=== PATIENT | male | born 1960 | race Caucasian/White ===

== ENCOUNTER 2019-12-24 08:13 | Day surgery (SDC) | payer BC ==
[2019-12-23 09:04] VITALS: BMI 22.9
[~2019-12-24 08:13] MED LIST: LACTATED RINGERS 1,000 ML IV SCH
[2019-12-24 08:40] VITALS: RESP 17; TEMP 98.1
[2019-12-24] MEDS ORDERED: PROPOFOL 10 MG/ML 20 ML VIAL IV ONE (09:17)
--- NOTE | 2019-12-24 09:21 | P.GSHP ---
History of Present Illness H&P Date: 12/24/19 Chief Complaint: Screening colonoscopy This a 59-year-old male who presents today for screening colonoscopy. Patient denies a significant GI complains. Past Medical History Past Medical History: COPD History of Any Multi-Drug Resistant Organisms: None Reported Past Surgical History: Hernia Repair Additional Past Surgical History / Comment(s): SX FOR COLLAPSED LUNG Past Anesthesia/Blood Transfusion Reactions: No Reported Reaction Smoking Status: Current every day smoker - Past Family History Father Family Medical History: Cancer Medications and Allergies Home Medications Medication Instructions Recorded Confirmed Type Fluticasone Nasal [place] [Flonase 1 spray EA NOSTRIL DAILY 12/23/19 12/24/19 History Nasal [place]] Fluticasone/Umeclidin/Vilanter 1 inhalation INHALATION DAILY 12/23/19 12/23/19 History [Moiz Ellipta 100-62.5-25] Loratadine [Claritin] 10 mg PO DAILY 12/23/19 12/24/19 History Montelukast [Singulair] 10 mg PO DAILY 12/23/19 12/23/19 History buPROPion HCL [buPROPion HCL SR] 150 mg PO DAILY 12/23/19 12/24/19 History Allergies Allergy/AdvReac Type Severity Reaction Status Date / Time No Known Allergies Allergy Verified 12/24/19 08:29 Surgical - Exam Vital Signs Temp Pulse Resp BP Pulse Ox 98.1 F 77 17 149/87 97 12/24/19 08:37 12/24/19 08:37 12/24/19 08:37 12/24/19 08:37 12/24/19 08:37 - General well developed, well nourished, no distress - Eyes PERRL - ENT normal pinna - Neck no masses - Respiratory normal expansion - Cardiovascular Rhythm: regular - Abdomen Abdomen: soft, non tender Assessment and Plan Assessment: Perform screening colonoscopy.
--- NOTE | 2019-12-24 09:31 | P.OP ---
Date of Procedure: 12/24/19 Preoperative Diagnosis: Screening colonoscopy Postoperative Diagnosis: Normal colonoscopy Procedure(s) Performed: Colonoscopy Anesthesia: MAC Surgeon: Yeison Miranda Pathology: none sent Condition: stable Disposition: PACU Description of Procedure: PROCEDURE: The patient was placed on the endoscopy table in the lateral position. Digital rectal examination was performed which revealed no abnormalities. The prostate was symmetrical without nodules. Flexible colonoscope was then placed in the patient's anus and passed throughout the entire colon. The ileocecal valve was visualized. The cecum, ascending, transverse, descending and sigmoid colon were normal. The rectum was normal as well. There were no masses, polyps or diverticula noted in the entire colon. SUMMARY OF FINDINGS: Normal colonoscopy.
[2019-12-24 09:44] VITALS: BP 115/88; PULSE 88
== END 2019-12-24 10:01 | disposition home or self-care (01) ==
LOC: ORWHC2ENDO 08:13
PROVIDERS: ATTEND Surgery
DX: Z12.11 Encounter for screening for malignant neoplasm of colon (principal); J44.9 Chronic obstructive pulmonary disease, unspecified; F17.200 Nicotine dependence, unspecified, uncomplicated; Z79.51 Long term (current) use of inhaled steroids; Z79.899 Other long term (current) drug therapy; Z98.890 Other specified postprocedural states; Z80.9 Family history of malignant neoplasm, unspecified
CPT/HCPCS: J2704; G0121

== ENCOUNTER → 2020-03-24 | Outpatient (CLI) | payer BC ==
--- NOTE | 2020-03-24 16:05 | CONS ---
CONSULTATION DATE OF SERVICE: 03/24/2020 This patient is a 60-year-old gentleman who has been evaluated in Sleep Center for possible obstructive sleep apnea-hypopnea syndrome. HISTORY OF PRESENT ILLNESS/SLEEP-WAKE EVALUATION: Patient's usual sleep schedule on working days is from 8 p.m. to 3 a.m., on weekends from 10 p.m. to 5 a.m. Usually no problems with falling asleep. No TV in bedroom. He prefers to sleep on the stomach position. According to his , he has loud snoring and witnessed episodes of stopped breathing during sleep. He wakes up from sleep about 3 times with one episode of nocturia. Positive history of restless legs and twitching legs during sleep. Positive history of sleeptalking. The patient feels sleepiness during the day, has problems with memory, irritability. [place] Sleepiness Scale is significantly increased at 15. PAST MEDICAL HISTORY: Positive for bronchitis, emphysema, asthma, acid reflux, pneumothorax. PAST SURGICAL HISTORY: Laminectomy, hernia repair. MEDICATIONS: Trelegy, montelukast, bupropion. SOCIAL HISTORY: Positive for smoking for about 30 years, up to 2 packs a day. Alcohol consumption occasional. FAMILY HISTORY: Stoke, asthma. PHYSICAL EXAMINATION: GENERAL: A pleasant patient in no distress. VITAL SIGNS: BP 137/83, HR 89, RR 15, height 5 feet 7 inches, weight 172.8, temperature 97.8. Oxygen saturation at room air 95%. HEENT: PERRLA, EOMI. Evaluation of oropharynx showed tongue protrudes midline. Low position of soft palate. Mallampati III to IV. NECK: Supple. No JVD. Thyroid is not palpable. Neck measures 15-1/2 inches in circumference. LUNGS: A few wheezes. HEART: S1, S2 regular. No murmurs, gallops or rubs. ABDOMEN: Soft and nontender. Bowel sounds are present. No organomegaly appreciated. EXTREMITIES: No clubbing or cyanosis. PLANT ATTENDANT: Awake, alert, and oriented X3. Cranial nerves 2 to 7 intact. There is no fasciculation or atrophy. noted. No focal deficits observed. IMPRESSION: 1. Loud snoring, witnessed episodes of stopped breathing during sleep, low position of soft palate, awakenings from sleep, sleepiness; obstructive sleep apnea-hypopnea syndrome. 2. History of restless legs. 3. Twitching of the legs during the night; possibly periodic limb movements. 4. Chronic obstructive pulmonary disease; history of smoking for about 60 pack/years. 5. History of pneumothorax. 6. Status post laminectomy. 7. Status post hernia repair. 8. History of anxiety. PLAN: 1. Polysomnography for evaluation of patient's breathing during sleep. 2. CPAP/BiPAP titration if sleep study confirms obstructive sleep apnea-hypopnea syndrome. 3. Preferable position during sleep on the side. 4. No driving if patient feels any sleepiness. 5. I will see patient for follow up visit to explain results of testing and following plan. Thank you very much for referring this patient for consultation. Sincerely, Leander Roth MD, PhD, FAASM Diplomat of [employer] [facility] [facility] [place] [facility] / SORENN: [id number] /
== END | disposition home or self-care (01) ==
LOC: SLEEP 13:14
PROVIDERS: ATTEND Internal Medicine
DX: G47.33 Obstructive sleep apnea (adult) (pediatric) (principal); J44.9 Chronic obstructive pulmonary disease, unspecified; G25.89 Other specified extrapyramidal and movement disorders; G47.69 Other sleep related movement disorders; Z87.891 Personal history of nicotine dependence; Z87.09 Personal history of other diseases of the respiratory system; Z98.890 Other specified postprocedural states
CPT/HCPCS: 99211

== ENCOUNTER → 2020-08-11 | Outpatient (CLI) | payer BC ==
--- NOTE | 2020-08-11 17:43 | SFUN ---
SLEEP CENTER FOLLOW UP NOTE DATE OF SERVICE: 08/11/2020 This 60-year-old gentleman has been followed in the sleep center for treatment of obstructive sleep apnea-hypopnea syndrome. Recently the patient had a polysomnogram which showed that the patient has obstructive sleep apnea, in mild range. Then he had a CPAP titration and subsequently was started on treatment with CPAP. The patient is able to use his CPAP equipment but sometimes feels discomfort during the night. He feels that there is not enough air. He also has problems with dryness. He does not know how to adjust humidity in the machine. I checked his CPAP unit. For the last month the patient used it 29/30 nights and 1630 nights for more than 4 hours with average usage 4.2 hours per night. Range of the pressure is 5 to 8. Leak is 7 L/minute. Apnea-hypopnea index 5.3. The patient is using a full-face mask. MEDICATIONS: Trelegy, montelukast, bupropion. PHYSICAL EXAMINATION: GENERAL: A pleasant patient in no distress. VITAL SIGNS: BP 155/66, HR 74, RR 12, oxygen saturation at room air 94%. Weight 181 pounds, temperature 98.2. [place] Sleepiness Scale is 13. HEENT: PERRLA, EOMI. Evaluation of oropharynx showed tongue protrudes midline. Low position of soft palate. Mallampati III to IV. NECK: Supple. No JVD. Thyroid is not palpable. LUNGS: Clear to percussion and to auscultation. Good air exchange. No wheezing or rhonchi. HEART: S1, S2 regular. No murmurs, gallops or rubs. ABDOMEN: Soft and nontender. Bowel sounds are present. No organomegaly appreciated. EXTREMITIES: No clubbing or cyanosis. HAIR SPRING WINDER: Awake, alert, and oriented X3. Cranial nerves 2 to 7 intact. There is no fasciculation or atrophy. noted. No focal deficits observed. IMPRESSION: 1. Obstructive sleep apnea-hypopnea syndrome. The patient demonstrated borderline compliance with treatment, benefitting from treatment. He feels more refreshed when he is using CPAP equipment. 2. History of restless legs. 3. Periodic limb movements were documented during the sleep study. 4. Chronic obstructive pulmonary disease; history of smoking for about 60 pack/years. 5. History of pneumothorax. 6. Status post laminectomy. 7. Status post hernia repair. 8. History of anxiety. PLAN: 1. Position of the machine should be 1 to 2 feet lower than the head. 2. Distilled water for the humidifier. 3. To dry chamber of humidifier and the tube in the morning. 4. To increase sleep time with the machine every night for the whole night. 5. I changed the maximal pressure in the machine to 10, so now the range of pressure is 5 to 10. 6. I taught the patient how to use heated humidifier, how to adjust the temperature. 7. Watching weight. 8. No driving if feeling any sleepiness. I spent with the patient and finishing paperwork for this visit 30 minutes. Thank you very much for allowing me to participate in the management of your patient. Sincerely, Leander Roth MD, PhD, FAASM Diplomat of [employer] [facility] [place] [facility] / [place]: [id number] /
== END ==
LOC: SLEEP 16:01
PROVIDERS: ATTEND Internal Medicine
DX: G47.33 Obstructive sleep apnea (adult) (pediatric) (principal); G47.61 Periodic limb movement disorder; J44.9 Chronic obstructive pulmonary disease, unspecified; F41.9 Anxiety disorder, unspecified; Z87.891 Personal history of nicotine dependence; Z87.09 Personal history of other diseases of the respiratory system; Z98.890 Other specified postprocedural states; Z79.899 Other long term (current) drug therapy